=== PATIENT | male | born 1985 | race Caucasian/White ===

== ENCOUNTER 2024-01-25 19:30 | Observation (INO) | payer BC ==
--- NOTE | 2024-01-25 19:56 | ED ---
General Adult HPI - General Chief complaint: Abdominal Pain Stated complaint: Abd pain Time Seen by Provider: 01/25/24 19:40 Source: patient, RN notes reviewed, old records reviewed Mode of arrival: EMS Limitations: no limitations - History of Present Illness Initial comments: This is a 38-year-old male who presents to the emergency department from [facility] where he was diagnosed with acute appendicitis. I reexamined the patient he was quite tender on the right side with rebound tenderness. Patient was not requesting pain medicines at this time. Patient was already given Zosyn at the other facility at 5:00. I spoke with [facility] prior to transfer and I spoke with Dr. Felix prior to the patient's arrival. - Related Data Allergies Allergy/AdvReac Type Severity Reaction Status Date / Time diphenhydramine Allergy Rash/Hives Verified 01/25/24 19:38 [From Jean-Pierrel] Review of Systems ROS Statement: Those systems with pertinent positive or pertinent negative responses have been documented in the HPI. ROS Other: All systems not noted in ROS Statement are negative. Past Medical History Past Medical History: No Reported History History of Any Multi-Drug Resistant Organisms: None Reported Past Surgical History: No Surgical Hx Reported Past Psychological History: No Psychological Hx Reported Smoking Status: Current every day smoker Past Alcohol Use History: Occasional Past Drug Use History: None Reported General Exam - General Exam Comments Initial Comments: GENERAL: Patient is well-developed and well-nourished. Patient is nontoxic and well- hydrated and is in mild distress. ENT: Neck is soft and supple. No significant lymphadenopathy is noted. Oropharynx is clear. Moist mucous membranes. Neck has full range of motion without elici ting any pain. EYES: The sclera were anicteric and conjunctiva were pink and moist. Extraocular movements were intact and pupils were equal round and reactive to light. Eyelids were unremarkable. PULMONARY: Unlabored respirations. Good breath sounds bilaterally. No audible rales rhonchi or wheezing was noted. CARDIOVASCULAR: There is a regular rate and rhythm without any murmurs gallops or rubs. ABDOMEN: Tenderness right lower quadrant SKIN: Skin is clear with no lesions or rashes and otherwise unremarkable. NEUROLOGIC: Patient is alert and oriented x3. Cranial nerves II through XII are grossly intact. Motor and sensory are also intact. Normal speech, volume and content. Symmetrical smile. MUSCULOSKELETAL: Normal extremities with adequate strength and full range of motion. LYMPHATICS: No significant lymphadenopathy is noted PSYCHIATRIC: Normal psychiatric exam Limitations: no limitations Course Vital Signs 01/25/24 19:35 Temperature 98.3 F Pulse Rate 71 Respiratory 18 Rate Blood Pressure 111/70 O2 Sat by Pulse 98 Oximetry Medical Decision Making - Medical Decision Making Was pt. sent in by a medical professional or institution (, MAI, ANCHOR OPERATOR, urgent care, hospital, or longterm...) When possible be specific @ -No Did you speak to anyone other than the patient for history (EMS, parent, family, police, friend...)? What history was obtained from this source @ -No Did you review nursing and triage notes (agree or disagree)? Why? @ -I reviewed and agree with nursing and triage notes Were old charts reviewed (outside hosp., previous admission, EMS record, old EKG, old radiological studies, urgent care reports/EKG's, longterm records)? Report findings @ -No old charts were reviewed Differential Diagnosis? @ -Differential Abdominal Pain Men: Appendicitis, cholecystitis, diverticulosis, ischemic bowel, pancreatitis, hepatitis, UTI, gastroenteritis, AAA, incarcerated hernia, bowel obstruction, constipation, inflammatory bowel, hepatitis, peptic ulcer disease, splenic infarction, perforated viscus, testicular torsion, this is not meant to be an all-inclusive list EKG interpreted by me (3pts min.). @ -As above X-rays interpreted by me (1pt min.). @ -None done CT interpreted by me (1pt min.). @ -None done U/S interpreted by me (1pt. min.). @ -None done What testing was considered but not performed or refused? (CT, X-rays, U/S, labs)? Why? @ -None What meds were considered but not given or refused? Why? @ -None Did you discuss the management of the patient with other professionals (professionals i.e. MAI Steele, ANCHOR OPERATOR, lab, RT, psych nurse, psychiatric social worker supervisor, senior hardware design engineer, teacher, chief contract officer, telephonic case manager)? Give summary @ -Spoke with Dr. Felix and he agreed to admit the patient Was smoking cessation discussed for >3mins.? @ -No Was critical care preformed (if so, how long)? @ -No Were there social determinants of health that impacted care today? How? (Homelessness, low income, unemployed, alcoholism, drug addiction, transportation, low edu. Level, literacy, decrease access to med. care, shelter, rehab)? @ -No Was there de-escalation of care discussed even if they declined (Discuss DNR or withdrawal of care, Hospice)? DNR status @ -No What co-morbidities impacted this encounter? (DM, HTN, Smoking, COPD, CAD, Cancer, CVA, ARF, Chemo, Hep., AIDS, mental health diagnosis, sleep apnea, morbid obesity)? @ -None Was patient admitted / discharged? Hospital course, mention meds given and route, prescriptions, significant lab abnormalities, going to OR and other pertinent info. @ -Dr. Felix agreed to admit the patient I started patient on antibiotics ordered some as needed pain medication and kept the patient n.p.o. Undiagnosed new problem with uncertain prognosis? @ -No Drug Therapy requiring intensive monitoring for toxicity (Heparin, Nitro, Insulin, Cardizem)? @ -No Were any procedures done? @ -No Diagnosis/symptom? @ -Acute Acute, or Chronic, or Acute on Chronic? @ -Acute Uncomplicated (without systemic symptoms) or Complicated (systemic symptoms)? @ -Default Side effects of treatment? @ -No Exacerbation, Progression, or Severe Exacerbation? @ -No Poses a threat to life or bodily function? How? (Chest pain, [place], [place], pneumonia, PE, COPD, DKA, ARF, appy, cholecystitis, CVA, Diverticulitis, Homicidal, Suicidal, threat to staff... and all critical care pts) @ -Yes this can lead to sepsis and endorgan dysfunction Disposition Clinical Impression: Appendicitis Disposition: ADMITTED IP TO THIS HOSP Referrals: None,Stated [Primary Care Provider] - 1-2 days Time of Disposition: 19:56
[2024-01-25] MEDS: MORPHINE SULFATE 2 MG/ML SYRINGE IVP PRN (22:58)
[2024-01-25] MEDS: SODIUM CHLORIDE 0.9% 1,000 ML IV ONE (22:59)
[2024-01-26] MEDS ORDERED: ONDANSETRON 4 MG/2 ML VIAL IVP PRN (04:05)
--- NOTE | 2024-01-26 04:09 | P.GSHP ---
History of Present Illness H&P Date: 01/26/24 This is a 38-year-old male who presents to the emergency department from [facility] where he was diagnosed with acute appendicitis. I reexamined the patient he was quite tender on the right side with rebound tenderness. CT- AP shows acute appendicitis. Review of Systems ROS Statement: Those systems with pertinent positive or pertinent negative responses have been documented in the HPI. ROS Other: All systems not noted in ROS Statement are negative. Past Medical History Past Medical History: No Reported History History of Any Multi-Drug Resistant Organisms: None Reported Past Surgical History: No Surgical Hx Reported Past Psychological History: No Psychological Hx Reported Smoking Status: Current every day smoker Past Alcohol Use History: Occasional Past Drug Use History: None Reported General Exam - General Exam Comments Initial Comments: GENERAL: Patient is well-developed and well-nourished. Patient is nontoxic and well-hydrated and is in mild distress. ENT: Neck is soft and supple. No significant lymphadenopathy is noted. Oropharynx is clear. Moist mucous membranes. Neck has full range of motion without eliciting any pain. EYES: The sclera were anicteric and conjunctiva were pink and moist. Extraocular movements were intact and pupils were equal round and reactive to light. Eyelids were unremarkable. PULMONARY: Unlabored respirations. Good breath sounds bilaterally. No audible rales rhonchi or wheezing was noted. CARDIOVASCULAR: There is a regular rate and rhythm without any murmurs gallops or rubs. ABDOMEN: Tenderness right lower quadrant SKIN: Skin is clear with no lesions or rashes and otherwise unremarkable. NEUROLOGIC: Patient is alert and oriented x3. Cranial nerves II through XII are grossly intact. Motor and sensory are also intact. Normal speech, volume and content. Symmetrical smile. MUSCULOSKELETAL: Normal extremities with adequate strength and full range of motion. LYMPHATICS: No significant lymphadenopathy is noted PSYCHIATRIC: Normal psychiatric exam 38 year old male with acute appendicitis -OR for appendectomy Past Medical History Past Medical History: No Reported History Additional Past Medical History / Comment(s): anxiety and depression History of Any Multi-Drug Resistant Organisms: None Reported Past Surgical History: No Surgical Hx Reported Past Psychological History: No Psychological Hx Reported Smoking Status: Current every day smoker Past Alcohol Use History: Rare Past Drug Use History: None Reported Medications and Allergies Allergies Allergy/AdvReac Type Severity Reaction Status Date / Time diphenhydramine Allergy Rash/Hives Verified 01/25/24 19:38 [From Benadryl] Surgical - Exam Vital Signs Temp Pulse Resp BP Pulse Ox 98.3 F 71 18 111/70 98 01/25/24 19:35 01/25/24 19:35 01/25/24 19:35 01/25/24 19:35 01/25/24 19:35
[2024-01-26] MEDS: SODIUM CHLORIDE 0.9% 1,000 ML IV SCH ×2 (05:41→13:46)
[2024-01-26] MEDS: ACETAMINOPHEN IV (For NPO) 1,000 MG in EMPTY BAG 1 BAG IVPB PRN (05:50)
[2024-01-26] MEDS: IV FLUID CONTINUATION 1,000 ML IV ONE (10:41)
[2024-01-26 10:42] LABS: Basophils # (A) 0.04 X 10*3/uL (0.00-0.10); Basophils % (A) 0.5 %; Eosinophils # (A) 0.17 X 10*3/uL (0.04-0.35); Eosinophils % (A) 1.9 %; HCT 39.5 % (39.6-50.0); HGB 12.9 g/dL (13.0-17.0); Lymphocytes # (A) 0.43 X 10*3/uL (0.90-5.00); Lymphocytes % (A) 4.9 %; MCH 31.2 pg (27.0-32.0); MCHC 32.7 g/dL (32.0-37.0); MCV 95.4 FL (80.0-97.0); Mean Platelet Volume 10.7 FL (9.5-12.2); Monocytes # (A) 0.87 X 10*3/uL (0.20-1.00); Monocytes % (A) 9.9 %; NRBC Per 100 WBC 0 X 10*3/uL (0.00-0.01); Neutrophils # (A) 7.24 X 10*3/uL (1.80-7.70); Neutrophils % (A) 82.5 %; Platelet Count 154 X 10*3/uL (140-440); RBC 4.14 X 10*6/uL (4.40-5.60); RDW 12.1 % (11.5-14.5); WBC 8.78 X 10*3/uL (4.50-10.00)
[2024-01-26 10:51] LABS: Blood Urea Nitrogen 18.8 mg/dL (9.0-27.0); Calcium 8.7 mg/dL (8.7-10.3); Chloride 102 mmol/L (96-109); Glucose 76 mg/dL (70-110); Potassium 3.7 mmol/L (3.5-5.5); Sodium 138 mmol/L (135-145)
[2024-01-26] MEDS: LACTATED RINGERS 1,000 ML BAG IV STA (11:18)
[2024-01-26] MEDS ORDERED: MIDAZOLAM 2 MG/2 ML VIAL ONE (11:33)
[2024-01-26] MEDS ORDERED: NEOSTIGMINE 1 MG/ML 10 ML VIAL ONE (11:33)
[2024-01-26] MEDS ORDERED: SUCCINYLCHOLINE CHLORIDE 200 MG/10 ML VIAL IV ONE (11:33)
[2024-01-26] MEDS ORDERED: PROPOFOL 10 MG/ML 20 ML VIAL IV ONE (11:33)
[2024-01-26] MEDS ORDERED: GLYCOPYRROLATE 0.2 MG/ML 2 ML VIAL ONE (11:33)
[2024-01-26] MEDS ORDERED: fentaNYL (PF) 50 MCG/ML 2 ML AMP ONE (11:33)
[2024-01-26] MEDS ORDERED: ROCURONIUM 10 MG/ML (5 ML VIAL) IV ONE (11:33)
[2024-01-26] MEDS ORDERED: LIDOCAINE 1% INJ 10MG/ML (20 ML MDV) ONE (11:33)
[2024-01-26] MEDS: LACTATED RINGERS 1,000 ML IV ONE (12:11)
[2024-01-26] MEDS ORDERED: HYDROmorphone 1 MG/ML 1 ML SYRINGE IVP PRN (12:17)
--- NOTE | 2024-01-26 12:22 | P.OP ---
Date of Procedure: 01/26/24 Preoperative Diagnosis: Acute Appendicitis Postoperative Diagnosis: Acute Appendicitis Procedure(s) Performed: Laparoscopic Appendectomy Anesthesia: ERMIAS Surgeon: Shamir Felix Pathology: other (Appendix) Condition: stable Disposition: PACU Description of Procedure: The patient was seen by me in the preoperative holding area. The risks of the procedure were explained. He was taken to the operating room and given perioperative antibiotics prior to coming to the surgery. General anesthesia was carried out without difficulty and a Fagan catheter was inserted. The left arm was tucked and the abdomen was prepped with Betadine and draped in sterile fashion. A 5-mm blunt port was inserted infra-umbilically at the level of the umbilicus under direct vision of a 5-mm 0-degree laparoscope. Once we were inside the abdominal cavity, CO2 was instilled to attain an adequate pneumoperitoneum. A left lower quadrant 5-mm port was placed under direct vision and a 12-mm port in the suprapubic region. The 5-mm scope was introduced at the umbilical port and the appendix was easily visualized. The base of the cecum was acutely inflamed but not perforated. I then was easily able to grasp the mesoappendix and create a window between the base of the mesoappendix and the base of the appendix. The window is big enough to get an Endo MARIO purple cartridge through it and fired across the base of the mesoappendix without difficulty. I reloaded with a red vascular cartridge, came across the mesoappendix without difficulty. I then placed the appendix in an Endobag and brought out through the suprapubic port without difficulty. I reinserted the suprapubic port and irrigated out the right lower quadrant until dry. One final inspection revealed no bleeding from the staple line. We then removed all ports under direct vision, and there was no bleeding from the abdominal trocar sites. The pneumoperitoneum was then deflated and the suprapubic fascial defect was closed with 0-Vicryl suture. The skin incisions were closed with 4-0 Monocryl suture. Skin glue was applied. No complications. Minimal blood loss. Specimen is the appendix. Brought to the recovery room in stable condition.
[2024-01-26] MEDS: HYDROmorphone 0.5 MG/0.5 ML SYRINGE IVP STA (12:32)
[2024-01-26 17:30] LABS: INR 1.26 sec (0.93-1.11); Prothrombin Time 13.4 sec (9.9-11.9)
[2024-01-26] MEDS: HYDROcodone/APAP 10-325MG 1 EACH TAB PO PRN (21:06)
[2024-01-26] MEDS: PIPERACILLIN-TAZOBACTAM 3.375 GM in SODIUM CHLORIDE 0.9% 100 ML IVPB SCH (22:37)
[2024-01-27 01:00] VITALS: RESP 16
[2024-01-27 07:22] VITALS: BP 116/67; PULSE 67; TEMP 97.9
[2024-01-27 07:36] LABS: Basophils % (A) 0 %; Eosinophils # (A) 0.2 k/uL (0-0.7); Eosinophils % (A) 4 %; HCT 39.6 % (39.0-53.0); HGB 12.9 gm/dL (13.0-17.5); Lymphocytes # (A) 0.7 k/uL (1.0-4.8); Lymphocytes % (A) 12 %; MCH 30.8 pg (25.0-35.0); MCHC 32.6 g/dL (31.0-37.0); MCV 94.7 fL (80.0-100.0); Mean Platelet Volume 7.9; Monocytes # (A) 0.6 k/uL (0-1.0); Monocytes % (A) 10 %; Neutrophils # (A) 4.4 k/uL (1.3-7.7); Neutrophils % (A) 73 %; Platelet Count 160 k/uL (150-450); RBC 4.19 m/uL (4.30-5.90); RDW 12.4 % (11.5-15.5)
[2024-01-27 08:05] LABS: African American GFR (CKD) >90 (>60 ml/min/1.73 sqM); Anion Gap 3 mmol/L; Blood Urea Nitrogen 15 mg/dL (9-20); Calcium 8.5 mg/dL (8.4-10.2); Carbon Dioxide 31 mmol/L (22-30); Chloride 103 mmol/L (98-107); Glucose 103 mg/dL (74-99); Non-African American GFR(CKD) 83 (>60 ml/min/1.73 sqM); Potassium 3.8 mmol/L (3.5-5.1); Sodium 137 mmol/L (137-145)
--- NOTE | 2024-01-27 11:26 | P.DS ---
Providers Date of admission: 01/25/24 19:57 Expected date of discharge: 01/27/24 Attending physician: DO Isidro Thakur Consults: None Primary care physician: Chriss Penn MD Plan - Discharge Summary New Discharge Prescriptions: No Action methocarbamoL [Robaxin-750] 750 mg PO Q6H PRN PRN Reason: Muscle Spasm Citalopram Hydrobromide [CeleXA] 20 mg PO HS Discharge Medication List Citalopram Hydrobromide [CeleXA] 20 mg PO HS 01/26/24 [History] methocarbamoL [Robaxin-750] 750 mg PO Q6H PRN 01/26/24 [History] Follow up Appointment(s)/Referral(s): None,Stated [REFERRING] - 1-2 days Shamir Felix DO [Medical Doctor] - 1 Week Patient Instructions/Handouts: Laparoscopic Appendectomy (GEN)
--- NOTE | 2024-01-27 11:28 | P.PN ---
Progress Note - Text Progress Note Date: 01/27/24 Patient seen and examined. He is doing well. Pain is controlled. Tolerating diet. VSS General-NAD Abdomen-soft, incisional TTP, ND POD #1 Laparoscopic Appendectomy -Regular Diet -AM labs reviewed -Patient will be discharged this AM Shamir Felix DO [facility] [phone]
== END 2024-01-27 11:30 | disposition home or self-care (01) ==
LOC: EC 19:30 → 6NMEDSUR 19:57
PROVIDERS: ADMIT Surgery; ATTEND Surgery
DX: K35.80 Unspecified acute appendicitis (principal); F17.210 Nicotine dependence, cigarettes, uncomplicated; F41.9 Anxiety disorder, unspecified; F32.A Depression, unspecified; Z79.899 Other long term (current) drug therapy; Z88.8 Allergy status to other drugs, medicaments and biological substances
CPT/HCPCS: 96361 ×2; 96365; 96375; 99285; 80048 ×2; 85025 ×2; 85610; 44970; G0378 ×3; J2543 ×2; J2250; J0330; J2710; J2003; J3010; J2270; J0131; J2704; J1171; J1596

== ENCOUNTER 2024-07-22 18:21 | Emergency (ER) | payer BC ==
[2024-07-22 18:32] VITALS: RESP 18; TEMP 98.4
[2024-07-22] MEDS: ORPHENADRINE 30 MG/ML 2 ML VIAL IM STA (18:54)
[2024-07-22] MEDS: DEXAMETHASONE SOD PHOSPHATE 10 MG/ML 1 ML VIAL IM STA (18:54)
[2024-07-22] MEDS: KETOROLAC 15 MG/ML 1 ML VIAL IM STA (18:55)
[2024-07-22] MEDS: LIDOCAINE 4% PATCH TOPICAL ONE (18:55)
[2024-07-22] MEDS: HYDROmorphone 1 MG/ML 1 ML SYRINGE IM STA (19:50)
--- NOTE | 2024-07-22 20:55 | ED ---
Back Pain HPI - General Chief Complaint: Back Pain/Injury Stated Complaint: Back pain Time Seen by Provider: 07/22/24 18:35 Source: patient Limitations: no limitations - History of Present Illness Initial Comments: 39-year-old male presenting with chief complaint of lower back pain. Patient states that the pain started last Sunday, he works as a labor-intensive job and reports that he continued to work through the pain, however today the pain was bad enough that it made him come to the ER. He has had no loss of bowel or bladder control or saddle paresthesia. He does have history of an old lower back injury, [facility]. No abdominal pain, urinary symptoms, fever, chills, nausea, vomiting. - Related Data Home Medications Medication Instructions Recorded Confirmed Citalopram Hydrobromide [CeleXA] 20 mg PO HS 01/26/24 01/26/24 methocarbamoL [Robaxin-750] 750 mg PO Q6H PRN 01/26/24 01/26/24 Allergies Allergy/AdvReac Type Severity Reaction Status Date / Time diphenhydramine Allergy Rash/Hives Verified 07/22/24 18:33 [From Benadjean carlosl] Review of Systems ROS Statement: Those systems with pertinent positive or pertinent negative responses have been documented in the HPI. ROS Other: All systems not noted in ROS Statement are negative. Past Medical History Past Medical History: No Reported History Additional Past Medical History / Comment(s): anxiety and depression History of Any Multi-Drug Resistant Organisms: None Reported Past Surgical History: No Surgical Hx Reported Past Psychological History: No Psychological Hx Reported Smoking Status: Current every day smoker Past Alcohol Use History: Rare Past Drug Use History: None Reported General Exam Limitations: no limitations General appearance: alert, in no apparent distress Head exam: Present: atraumatic, normocephalic, normal inspection Eye exam: Present: normal appearance, EOMI Course Vital Signs 07/22/24 07/22/24 07/22/24 18:29 19:48 21:17 Temperature 98.4 F Pulse Rate 67 60 65 Respiratory 18 18 18 Rate Blood Pressure 122/76 123/71 132/82 O2 Sat by Pulse 99 99 98 Oximetry Medical Decision Making - Medical Decision Making Was pt. sent in by a medical professional or institution (, PA, DENTAL PROSTHETIST, urgent care, hospital, or longterm...) When possible be specific @ -No Did you speak to anyone other than the patient for history (EMS, parent, family, police, friend...)? What history was obtained from this source @ -No Did you review nursing and triage notes (agree or disagree)? Why? @ -I reviewed and agree with nursing and triage notes Were old charts reviewed (outside hosp., previous admission, EMS record, old EKG, old radiological studies, urgent care reports/EKG's, longterm records)? Report findings @ -No old charts were reviewed Differential Diagnosis (chest pain, altered mental status, abdominal pain women, abdominal pain men, vaginal bleeding, weakness, fever, dyspnea, syncope, headache, dizziness, GI bleed, back pain, seizure, CVA, palpatations, mental health, musculoskeletal)? @ - MDM Differential Back Pain: Strain, zoster, cauda equina syndrome, epidural abscess, vertebral osteomyelitis, discitis, fracture, subluxation, disc herniation, DJD, spinal stenosis, dissection, AAA, pancreatitis, peptic ulcer disease, pyelonephritis, kidney stone… this is not meant to be an all-inclusive list. EKG interpreted by me (3pts min.). @ -As above X-rays interpreted by me (1pt min.). @ -None done CT interpreted by me (1pt min.). @ -CT shows no evidence of acute spinal fracture. Mild multilevel degenerative disc disease. U/S interpreted by me (1pt. min.). @ -None done What testing was considered but not performed or refused? (CT, X-rays, U/S, labs)? Why? @ -None What meds were considered but not given or refused? Why? @ -None Did you discuss the management of the patient with other professionals (professionals i.e. , PA, DENTAL PROSTHETIST, lab, RT, psych nurse, social organization professor, lasting machine operator bed, teacher, commanding officer motorized squad, case resolution specialist)? Give summary @ -No Was smoking cessation discussed for >3mins.? @ -No Was critical care preformed (if so, how long)? @ -No Were there social determinants of health that impacted care today? How? (Homelessness, low income, unemployed, alcoholism, drug addiction, transportation, low edu. Level, literacy, decrease access to med. care, skilled nursing, rehab)? @ -No Was there de-escalation of care discussed even if they declined (Discuss DNR or withdrawal of care, Hospice)? DNR status @ -No What co-morbidities impacted this encounter? (DM, HTN, Smoking, COPD, CAD, Cancer, CVA, ARF, Chemo, Hep., AIDS, mental health diagnosis, sleep apnea, morbid obesity)? @ -None Was patient admitted / discharged? Hospital course, mention meds given and route, prescriptions, significant lab abnormalities, going to OR and other pertinent info. @ -39-year-old male presenting with chief complaint of lower back pain. History of an old lower back injury. No red flag symptoms. Patient was given multiple rounds of pain medication and was still having a large amount of pain. CT was obtained which did show some broad disc bulging, however there was no significant spinal canal stenosis or neural foraminal stenosis. After additional pain medication on reassessment patient reports improvement. He is able to ambulate without difficulty. He is educated on today's findings and supportive management at home. Follow-up with PCP. Report back to ER with any new or worsening symptoms. Discussed return parameters and answered all questions. Patient conveyed verbal understanding and agreed to the plan. I discussed this case in detail with my attending Dr. garcia Undiagnosed new problem with uncertain prognosis? @ -No Drug Therapy requiring intensive monitoring for toxicity (Heparin, Nitro, In sulin, Cardizem)? @ -No Were any procedures done? @ -No Diagnosis/symptom? @ -Strain of lumbar region Acute, or Chronic, or Acute on Chronic? @ -Acute Uncomplicated (without systemic symptoms) or Complicated (systemic symptoms)? @ -Uncomplicated Side effects of treatment? @ -No Exacerbation, Progression, or Severe Exacerbation? @ -No Poses a threat to life or bodily function? How? (Chest pain, [place], [place], pneumonia, PE, COPD, DKA, ARF, appy, cholecystitis, CVA, Diverticulitis, Homicidal, Suicidal, threat to staff... and all critical care pts) @ -Unlikely Disposition Clinical Impression: Strain of lumbar region Disposition: HOME SELF-CARE Condition: Good Instructions (If sedation given, give patient instructions): Acute Low Back Pain (ED) Additional Instructions: Follow-up with PCP. Report back to ER with any new or worsening symptoms. Take medication as prescribed. Is patient prescribed a controlled substance at d/c from ED?: No Referrals: Chriss Penn MD [Primary Care Provider] - 1-2 days Time of Disposition: 21:39
[2024-07-22] MEDS: HYDROmorphone 1 MG/ML 1 ML SYRINGE IVP STA (21:18)
--- NOTE | 2024-07-22 21:26 | CT ---
EXAMINATION TYPE: CT lumbar spine wo con CT DLP: 832.5 mGycm, Automated exposure control for dose reduction was used. DATE OF EXAM: 07/22/2024 9:12 PM COMPARISON: Outside institution CT abdomen and pelvis 01/25/2024. CLINICAL INDICATION:Male, 39 years old with history of pain; PHH, Pt presents to ED for c/o back pain starting last Sunday. Pt states old hx of back injury. Pt denies any changes to bowel or bladder garcia bits at this time, pain TECHNIQUE: Multiple axial images were obtained from the midportion of T11 through the sacroiliac anton nts. Soft tissue and bone windows in coronal and sagittal planes were obtained and reviewed. Contrast used: none. Oral contrast used: none. FINDINGS: Alignment: There are 5 lumbar type vertebral bodies within normal alignment. Bone: No evidence of fracture is identified. Discs: T12-L1: No spinal canal or neural foraminal stenosis is identified. L1-L2: No spinal canal or neural foraminal stenosis is identified. L2-L3: No spinal canal or neural foraminal stenosis is identified. L3-L4: Broad-based disc bulge with significant effacement of the anterior thecal sac. Minimal central canal stenosis. No significant neural foraminal stenosis. L4-L5: Broad-based disc bulge without significant effacement of the anterior thecal sac. No significa nt central canal stenosis. Mild bilateral neural foraminal stenosis. L5-S1: Broad-based disc bulge without significant effacement of the anterior thecal sac. No significa nt central canal stenosis. Mild bilateral neural foraminal stenosis. Other: Postsurgical changes from appendectomy. IMPRESSION: 1. No evidence for acute spinal fracture. 2. Mild multilevel degenerative disc disease. Consider further evaluation with MRI if there is contin ued clinical concern. [facility], , 07/22/2024 9:24 PM
[2024-07-22 21:30] VITALS: BP 132/82; PULSE 65
[2024-07-22] MEDS: ACET/COD 300 MG/30 MG STARTER PACK 6 TAB BTL PO STA (21:43)
== END 2024-07-22 21:48 | disposition home or self-care (01) ==
LOC: EC 18:21
DX: S39.012A Strain of muscle, fascia and tendon of lower back, initial encounter (principal); F17.200 Nicotine dependence, unspecified, uncomplicated; Z88.8 Allergy status to other drugs, medicaments and biological substances; X58.XXXA Exposure to other specified factors, initial encounter
CPT/HCPCS: 72131; 99283; 96374; 96372; J1100; J2360; J1171; J1885

== ENCOUNTER 2024-09-13 17:28 | Emergency (ER) | payer BC ==
[2024-09-13] MEDS: HYDROmorphone 1 MG/ML 1 ML SYRINGE IVP STA ×2 (18:23→19:05)
[2024-09-13] MEDS: KETOROLAC 15 MG/ML 1 ML VIAL IVP STA ×2 (18:24→19:06)
[2024-09-13] MEDS: ORPHENADRINE 30 MG/ML 2 ML VIAL IVP STA (18:24)
[2024-09-13] MEDS: DEXAMETHASONE SOD PHOSPHATE 10 MG/ML 1 ML VIAL IVP STA (18:24)
[2024-09-13] MEDS: LIDOCAINE 4% PATCH TOPICAL ONE (18:24)
--- NOTE | 2024-09-13 18:24 | ED ---
Back Pain HPI - General Chief Complaint: Back Pain/Injury Stated Complaint: back pain Time Seen by Provider: 09/13/24 17:44 Source: patient, RN notes reviewed Mode of arrival: ambulatory Limitations: no limitations - History of Present Illness Initial Comments: This is a 39-year-old male who presents to the emergency department for back pain. Patient reports right lower back pain over the last week. Denies any injuries. He was evaluated here for the same thing a couple of months ago and told that he had disc problems. States that symptoms feel the same. He has tried taking naproxen and Robaxin without any relief. Pain is much worse with movement. Denies any loss of bowel/bladder control or saddle anesthesia. MD Complaint: back pain - Related Data Home Medications Medication Instructions Recorded Confirmed Citalopram Hydrobromide [CeleXA] 20 mg PO HS 01/26/24 01/26/24 methocarbamoL [Robaxin-750] 750 mg PO Q6H PRN 01/26/24 01/26/24 Previous Rx's Medication Instructions Recorded Cyclobenzaprine [Flexeril] 10 mg PO TID PRN #30 tab 09/13/24 Diclofenac Sodium [Voltaren] 75 mg PO BID PRN #20 tab 09/13/24 HYDROcodone/APAP 5-325MG [[place] 1 tab PO Q6HR PRN 3 Days #12 tab 09/13/24 5-325] Lidocaine 5% Patch [Lidoderm 5% 1 patch TOPICAL DAILY PRN #30 patch 09/13/24 Patch] Allergies Allergy/AdvReac Type Severity Reaction Status Date / Time diphenhydramine Allergy Rash/Hives Verified 09/13/24 17:43 [From Benadryl] Review of Systems ROS Statement: Those systems with pertinent positive or pertinent negative responses have been documented in the HPI. ROS Other: All systems not noted in ROS Statement are negative. Past Medical History Past Medical History: No Reported History Additional Past Medical History / Comment(s): anxiety and depression History of Any Multi-Drug Resistant Organisms: None Reported Past Surgical History: No Surgical Hx Reported Past Psychological History: No Psychological Hx Reported Smoking Status: Current every day smoker Past Alcohol Use History: Rare Past Drug Use History: None Reported General Exam Limitations: no limitations General appearance: alert, in no apparent distress Head exam: Present: atraumatic, normocephalic, normal inspection Respiratory exam: Present: normal lung sounds bilaterally. Absent: respiratory distress, wheezes, rales, rhonchi, stridor Cardiovascular Exam: Present: regular rate, normal rhythm Back exam: Present: other (Tenderness over the right lower back) Neurological exam: Present: alert, oriented X3, CN II-XII intact Psychiatric exam: Present: normal affect, normal mood Skin exam: Present: warm, dry, intact, normal color. Absent: rash Course Vital Signs 09/13/24 09/13/24 09/13/24 17:41 18:47 19:55 Temperature 98.2 F 98 F 98.0 F Pulse Rate 90 66 52 L Respiratory 18 16 14 Rate Blood Pressure 108/69 121/73 123/73 O2 Sat by Pulse 93 L 99 99 Oximetry Medical Decision Making - Medical Decision Making This is a 39-year-old male who presents to the emergency department for back pain. Was pt. sent in by a medical professional or institution? @ -No Did you speak to anyone other than the patient for history? @ -No Did you review nursing and triage notes? @ -Yes, and I agree, it is accurate with regards to the patient's symptoms. Were old charts reviewed? @ -CT scan of the lumbar spine from 07/22/2024 revealing no acute process. He is noted to have mild degenerative disc disease. Differential Diagnosis? @ -Differential Back Pain: Strain, zoster, cauda equina syndrome, epidural abscess, vertebral osteomyelitis, discitis, fracture, subluxation, disc herniation, DJD, spinal stenosis, dissection, AAA, pancreatitis, peptic ulcer disease, pyelonephritis, kidney stone, this is not meant to be an all-inclusive list. EKG interpreted by me (3pts min.)? @ -Not obtained X-rays interpreted by me (1pt min.)? @ -Not obtained CT interpreted by me (1pt min.)? @ -Not obtained U/S interpreted by me (1pt. min.)? @ -Not obtained What testing was considered but not performed? (CT, X-rays, U/S, labs)? Why? @ -None What meds were considered but not given? Why? @ -None Did you discuss the management of the patient with other professionals? @ -No Did you reconcile home meds? @ -No Was smoking cessation discussed for >3mins.? @ -No Was critical care preformed (if so, how long)? @ -No Were there social determinants of health that impacted care today? How? (Home lessness, low income, unemployed, alcoholism, drug addiction, transportation, low edu. Level, literacy, decrease access to med. care, half-way, rehab)? @ -No Was there de-escalation of care discussed even if they declined? (Discuss DNR or withdrawal of care, Hospice)? @ -No What co-morbidities impacted this encounter? (DM, HTN, Smoking, COPD, CAD, Ca ncer, CVA, Hep., AIDS, mental health diagnosis, sleep apnea, morbid obesity)? @ -None Was patient admitted / discharged? @ -Discharged. He did have a CT scan of the lumbar spine less than 2 months ago for the same problem. This revealed degenerative changes without acute findings. Given that he did not have any injuries and this is the same pain, no imaging was repeated. Pain was treated in the emergency department. However, his pain was somewhat difficult to control. I was agreeable to a 3-day course of [place], however he is advised to take this very sparingly when his pain is the most severe. Otherwise advised he take the diclofenac, Flexeril, and lidocaine patches that were prescribed. Patient discharged home in stable condition. Case discussed with ED attending Dr. Ley. Return precautions reviewed in depth, the patient is instructed to return to the emergency department with any new, worsening, or concerning symptoms. Patient ve rbalized understanding. Undiagnosed new problem with uncertain prognosis? @ -None Drug Therapy requiring intensive monitoring for toxicity (Heparin, Nitro, Insul in, Cardizem)? @ -None Were any procedures done? @ -None Diagnosis/symptom? @ -Lumbar strain Acute, or Chronic, or Acute on Chronic? @ -Acute Uncomplicated (without systemic symptoms) or Complicated (systemic symptoms)? @ -Uncomplicated Side effects of treatment? @ -None Exacerbation, Progression, or Severe Exacerbation] @ -Not applicable Poses a threat to life or bodily function? @ -No Disposition Clinical Impression: Strain of lumbar region Disposition: HOME SELF-CARE Condition: Stable Instructions (If sedation given, give patient instructions): Low Back Strain (ED), Acute Low Back Pain (ED) Additional Instructions: Return to the emergency department with any new, worsening, or concerning symptoms. Take the diclofenac twice daily for pain control. Take the Flexeril up to 3 times daily. You can also apply the lidocaine patches daily. Follow up with your primary care provider in 1-2 days. Prescriptions: Cyclobenzaprine [Flexeril] 10 mg PO TID PRN #30 tab PRN Reason: Pain Lidocaine 5% Patch [Lidoderm 5% Patch] 1 patch TOPICAL DAILY PRN #30 patch PRN Reason: Pain HYDROcodone/APAP 5-325MG [[place] 5-325] 1 tab PO Q6HR PRN 3 Days #12 tab PRN Reason: Pain Diclofenac Sodium [Voltaren] 75 mg PO BID PRN #20 tab PRN Reason: Pain Is patient prescribed a controlled substance at d/c from ED?: Yes When asked, does pt state using other controlled substances?: No If prescribed controlled substance>3 days was MAPS reviewed?: Prescribed <3 Days Referrals: None,Stated [REFERRING] - 1-2 days Time of Disposition: 19:41
[2024-09-13] MEDS: traMADol 50 MG STARTER PACK 3 TAB BTL PO STA (19:52)
[2024-09-13 19:58] VITALS: BP 123/73; PULSE 52; RESP 14; TEMP 98
== END 2024-09-13 20:34 | disposition home or self-care (01) ==
LOC: EC 17:28
DX: S39.012A Strain of muscle, fascia and tendon of lower back, initial encounter (principal); F17.200 Nicotine dependence, unspecified, uncomplicated; Z88.8 Allergy status to other drugs, medicaments and biological substances; X58.XXXA Exposure to other specified factors, initial encounter
CPT/HCPCS: 99284; 96374; 96375; 96376; J1100; J2360; J1171; J1885

== ENCOUNTER 2024-10-03 20:55 | Emergency (ER) | payer BC ==
[2024-10-03 20:59] VITALS: RESP 18
--- NOTE | 2024-10-03 22:03 | ED ---
Back Pain HPI - General Chief Complaint: Back Pain/Injury Stated Complaint: R Leg Pain Time Seen by Provider: 10/03/24 21:11 Source: patient, RN notes reviewed Limitations: no limitations - History of Present Illness Initial Comments: This is a 39-year-old male with history of low back pain presenting for back pain (12/12) x 7 days. Patient states his back "gave out" while standing without fall, position change, heavy lifting, twisting. Patient endorses pain radiating down back of leg right leg with paresthesia extending from knee to foot. Patient endorses receiving muscle relaxers and steroids in the past with minimal relief. Denies saddle paresthesia or urinary incontinence/retention. MD Complaint: back pain Onset/Timin -: days(s) Similar Symptoms Previously: Yes Radiation: right leg Severity scale (1-10): 10 Quality: aching Consistency: constant Improves With: immobilization Worsens With: movement, sitting upright, walking Associated Symptoms: denies other symptoms Treatments Prior to Arrival: NSAIDS, other medications (Steroids, Flexeril) - Related Data Home Medications Medication Instructions Recorded Confirmed Citalopram Hydrobromide [CeleXA] 20 mg PO HS 01/26/24 01/26/24 methocarbamoL [Robaxin-750] 750 mg PO Q6H PRN 01/26/24 01/26/24 Previous Rx's Medication Instructions Recorded Cyclobenzaprine [Flexeril] 10 mg PO TID PRN #30 tab 09/13/24 Diclofenac Sodium [Voltaren] 75 mg PO BID PRN #20 tab 09/13/24 HYDROcodone/APAP 5-325MG [[place] 1 tab PO Q6HR PRN 3 Days #12 tab 09/13/24 5-325] Lidocaine 5% Patch [Lidoderm 5% 1 patch TOPICAL DAILY PRN #30 patch 09/13/24 Patch] Ibuprofen [Motrin] 800 mg PO Q8HR PRN #30 tab 10/03/24 Allergies Allergy/AdvReac Type Severity Reaction Status Date / Time diphenhydramine Allergy Rash/Hives Verified 10/03/24 20:59 [From Benadryl] Review of Systems ROS Statement: Those systems with pertinent positive or pertinent negative responses have been documented in the HPI. ROS Other: All systems not noted in ROS Statement are negative. Past Medical History Past Medical History: No Reported History Additional Past Medical History / Comment(s): anxiety and depression History of Any Multi-Drug Resistant Organisms: None Reported Past Surgical History: No Surgical Hx Reported Past Psychological History: No Psychological Hx Reported Smoking Status: Current every day smoker Past Alcohol Use History: Rare Past Drug Use History: None Reported General Exam Limitations: no limitations General appearance: alert, in no apparent distress Head exam: Present: atraumatic, normocephalic, normal inspection Eye exam: Present: normal appearance, PERRL, EOMI. Absent: scleral icterus, conjunctival injection, periorbital swelling ENT exam: Present: normal exam, mucous membranes moist Neck exam: Present: normal inspection. Absent: tenderness, meningismus, lymphadenopathy Respiratory exam: Present: normal lung sounds bilaterally. Absent: respiratory distress, wheezes, rales, rhonchi, stridor Cardiovascular Exam: Present: regular rate, normal rhythm, normal heart sounds. Absent: systolic murmur, diastolic murmur, rubs, gallop, clicks GI/Abdominal exam: Present: soft, normal bowel sounds. Absent: distended, tenderness, guarding, rebound, rigid Extremities exam: Present: full ROM, normal capillary refill, other (Positive right straight leg raise. Patient notes some sensation loss in right foot. Normal sensation in right calf, knee, thigh. Distal BLE vascular and motor function intact bilaterally. Dorsalis pedis pulse +2 bilaterally.). Absent: tenderness, pedal edema, joint swelling, calf tenderness Back exam: Present: muscle spasm, paraspinal tenderness (Positive right paralumbar muscle spasm and point tenderness), vertebral tenderness (Positive lumbosacral TTP without crepitus or step-off.) Neurological exam: Present: alert, oriented X3, CN II-XII intact Psychiatric exam: Present: normal affect, normal mood Skin exam: Present: warm, dry, intact, normal color. Absent: rash Course Vital Signs 10/03/24 10/03/24 20:56 23:45 Temperature 97.7 F 97.8 F Pulse Rate 67 68 Respiratory 18 18 Rate Blood Pressure 122/69 129/78 O2 Sat by Pulse 100 99 Oximetry Medical Decision Making - Medical Decision Making Was pt. sent in by a medical professional or institution (, PA, LEASE ADMINISTRATION ANALYST, urgent care, hospital, or fci...) When possible be specific @ -No Did you speak to anyone other than the patient for history (EMS, parent, family, police, friend...)? What history was obtained from this source @ -No Did you review nursing and triage notes (agree or disagree)? Why? @ -I reviewed and agree with nursing and triage notes Were old charts reviewed (outside hosp., previous admission, EMS record, old EKG, old radiological studies, urgent care reports/EKG's, fci records)? Report findings @ -No old charts were reviewed Differential Diagnosis (chest pain, altered mental status, abdominal pain women, abdominal pain men, vaginal bleeding, weakness, fever, dyspnea, syncope, head ache, dizziness, GI bleed, back pain, seizure, CVA, palpatations, mental health, musculoskeletal)? @ -Differential Back Pain: Strain, zoster, cauda equina syndrome, epidural abscess, vertebral osteom yelitis, discitis, fracture, subluxation, disc herniation, DJD, spinal stenosis, dissection, AAA, pancreatitis, peptic ulcer disease, pyelonephritis, kidney stone, this is not meant to be an all-inclusive list. EKG interpreted by me (3pts min.). @ -Not done X-rays interpreted by me (1pt min.). @ -Lumbar spine x-ray shows no acute fracture and normal alignment with no significant disc space narrowing. CT interpreted by me (1pt min.). @ -None done U/S interpreted by me (1pt. min.). @ -None done What testing was considered but not performed or refused? (CT, X-rays, U/S, lab s)? Why? @ -None What meds were considered but not given or refused? Why? @ -Patient initially ordered IM Dilaudid and Toradol, with patient noting greater relief with IV versions IM administrations canceled. Did you discuss the management of the patient with other professionals (professionals i.e. , PA, LEASE ADMINISTRATION ANALYST, lab, RT, psych nurse, social sciences instructor, systems integration advisor, teacher, branch lending officer, sample case porter)? Give summary @ -No Was smoking cessation discussed for >3mins.? @ -No Was critical care preformed (if so, how long)? @ -No Were there social determinants of health that impacted care today? How? (Home lessness, low income, unemployed, alcoholism, drug addiction, transportation, low edu. Level, literacy, decrease access to med. care, half-way, rehab)? @ -No Was there de-escalation of care discussed even if they declined (Discuss DNR or withdrawal of care, Hospice)? DNR status @ -No What co-morbidities impacted this encounter? (DM, HTN, Smoking, COPD, CAD, Cancer, CVA, ARF, Chemo, Hep., AIDS, mental health diagnosis, sleep apnea, morbid obesity)? @ -None Was patient admitted / discharged? Hospital course, mention meds given and route, prescriptions, significant lab abnormalities, going to OR and other pertinent info. @ -Lumbar spine x-ray shows no acute fracture and normal alignment with no significant disc space narrowing. Patient initially provided IV Dilaudid, Toradol and lidocaine patch noting ongoing pain and provided additional IV Dilaudid, Toradol and Norflex. Patient notes significant pain relief. Motrin 800 sent to patient's pharmacy. Advise follow-up with orthospine for ongoing management of lower back pain. Discharged with T3 starter pack. Discussed patient with Dr. Dyer. Undiagnosed new problem with uncertain prognosis? @ -No Drug Therapy requiring intensive monitoring for toxicity (Heparin, Nitro, Insulin, Cardizem)? @ -No Were any procedures done? @ -No Diagnosis/symptom? @ -Mechanical low back pain, right leg radiculopathy Acute, or Chronic, or Acute on Chronic? @ -Acute Uncomplicated (without systemic symptoms) or Complicated (systemic symptoms)? @ -Uncomplicated Side effects of treatment? @ -No Exacerbation, Progression, or Severe Exacerbation? @ -No Poses a threat to life or bodily function? How? (Chest pain, [place], [place], pneumonia, PE, COPD, DKA, ARF, appy, cholecystitis, CVA, Diverticulitis, Homicidal, Suicidal, threat to staff... and all critical care pts) @ -No Disposition Clinical Impression: Strain of lumbar region, Lumbar radiculopathy Disposition: HOME SELF-CARE Condition: Fair Instructions (If sedation given, give patient instructions): Acute Low Back Pain (ED) Additional Instructions: Alternate Tylenol/Motrin every 4 hours for pain. Warm compress to affected muscle group for 10 minutes up to 4 times daily. Follow-up with PCP/orthospine for further evaluation and management of lower back pain. Prescriptions: Ibuprofen [Motrin] 800 mg PO Q8HR PRN #30 tab PRN Reason: Pain Is patient prescribed a controlled substance at d/c from ED?: No Referrals: Chriss Penn MD [Primary Care Provider] - 1-2 days [facility] [Provider Group] - 1-2 days Laurence Bedolla DO [Doctor of Osteopathic Medicine] - 1-2 days Time of Disposition: 22:02
[2024-10-03] MEDS: HYDROmorphone 1 MG/ML 1 ML SYRINGE IM STA (22:29)
[2024-10-03] MEDS: ACETAMINOPHEN TAB 500 MG TAB PO STA (22:30)
[2024-10-03] MEDS: KETOROLAC 15 MG/ML 1 ML VIAL IM STA (22:30)
[2024-10-03] MEDS: ACET/COD 300 MG/30 MG STARTER PACK TAB BTL PO STA (22:32)
[2024-10-03] MEDS: LIDOCAINE 4% PATCH TOPICAL ONE (22:32)
[2024-10-03] MEDS: HYDROmorphone 1 MG/ML 1 ML SYRINGE IVP STA ×2 (22:33→23:52)
[2024-10-03] MEDS: KETOROLAC 15 MG/ML 1 ML VIAL IVP STA ×2 (22:33→23:50)
[2024-10-03 23:47] VITALS: BP 129/78; PULSE 68; TEMP 97.8
[2024-10-03] MEDS: ORPHENADRINE 30 MG/ML 2 ML VIAL IM STA (23:47)
--- NOTE | 2024-10-04 01:13 | XR ---
EXAM: XR Lumbosacral Spine, 2 or 3 Views CLINICAL HISTORY: ITS.REASON XR Reason: Patient lower back pain with right radiculopathy TECHNIQUE: Frontal and lateral views of the lumbar spine and sacrum. COMPARISON: No relevant prior studies available. FINDINGS: Vertebrae: Mild degenerative endplate changes. No acute fracture. Normal alignment. Sacrum/coccyx: Unremarkable as visualized. No acute fracture. Disc spaces: No acute findings. No significant narrowing. Soft tissues: Unremarkable. IMPRESSION: No acute fracture. Normal alignment.
== END 2024-10-04 00:02 | disposition home or self-care (01) ==
LOC: EC 20:55
DX: S39.012A Strain of muscle, fascia and tendon of lower back, initial encounter (principal); M54.16 Radiculopathy, lumbar region; F17.200 Nicotine dependence, unspecified, uncomplicated; Z88.8 Allergy status to other drugs, medicaments and biological substances; X58.XXXA Exposure to other specified factors, initial encounter
CPT/HCPCS: 72110; 99283; 96374; 96375; 96376 ×2; 96372; J2360; J1171; J1885